=== PATIENT | female | born 1965 | race Caucasian/White ===

== ENCOUNTER 2018-02-06 16:28 | Emergency (ER) | payer OTHER ==
[2018-02-06 16:34] VITALS: RESP 18; BMI 25.6
--- NOTE | 2018-02-06 18:03 | RAD ---
Date of service: 02/06/2018 PROCEDURE: Left small finger radiographs. HISTORY: left 5th finger swelling, erythema COMPARISON: None available. TECHNIQUE: AP radiograph of the left hand, as well as spot oblique and lateral images of left small finger were obtained. FINDINGS: LEFT SMALL FINGER: Left 5th digit demonstrates small oblong hyperdensity along the medial proximal aspect of the 5th middle phalanx seen only on AP view of unclear significance. No acute displaced fracture identified. Remainder of the left hand (as seen on the AP view) is grossly unremarkable. JOINTS: No dislocation. SOFT TISSUES: Marked soft tissue swelling of the 5th digit. OTHER FINDINGS: None. IMPRESSION: Soft tissue swelling of the 5th digit. Left 5th digit demonstrates small oblong hyperdensity along the medial proximal aspect of the 5th middle phalanx seen only on AP view of unclear significance; recommend clinical correlation including physical exam. No acute displaced fracture identified.
--- NOTE | 2018-02-06 18:11 | ED PDOC ---
Arrival/HPI - General Chief Complaint: Finger,Hand,&Wrist Time Seen by Provider: 02/06/18 16:35 Historian: Patient - History of Present Illness Narrative History of Present Illness (Text): 02/06/18 18:14 52-year-old female presents today with left fifth finger pain redness and swelling that started this morning. Patient states she thought she may have slept on her finger wrong and woke up with pain redness and swelling to the PIP joint. Patient denies numbness weakness or tingling in the extremity but is complaining of some pain with range of motion of the finger. She denies any recent trauma or injury. Patient denies fevers or chills. No medications have been taken at home. Patient states throughout the day she's had increased swelling to the finger. No other complaints. Patient states the majority of pain is located over the PIP joint. Past Medical History - Provider Review Nursing Documentation Reviewed: Yes - Travel History Have you recently traveled outside [place] w/in the past 3 mons?: No - Infectious Disease Hx of Infectious Diseases: None - Tetanus Immunization Tetanus Immunization: Unknown - Past Medical History Past Medical History: No Previous - Cardiac Hx Cardiac Disorders: No - Pulmonary Hx Respiratory Disorders: No - Neurological Hx Neurological Disorder: No - HEENT Hx HEENT Disorder: No - Renal Hx Renal Disorder: No - Endocrine/Metabolic Hx Endocrine Disorders: No - Hematological/Oncological Hx Blood Disorders: No - Musculoskeletal/Rheumatological Hx Musculoskeletal Disorders: No - Gastrointestinal Hx Hemorrhoids: Yes - Genitourinary/Gynecological Hx Genitourinary Disorders: No - Psychiatric Hx Depression: No Hx Emotional Abuse: No Hx Physical Abuse: No Hx Substance Use: No - Surgical History Hx Section: Yes Hx Cholecystectomy: Yes Hx Hysterectomy: Yes - Anesthesia Hx Anesthesia: Yes Hx Anesthesia Reactions: No Hx Malignant Hyperthermia: No - Suicidal Assessment Feels Threatened In Home Enviroment: No Family/Social History - Physician Review Nursing Documentation Reviewed: Yes Family/Social History: Unknown Family HX Smoking Status: Never Smoked Hx Alcohol Use: No Hx Substance Use: No Hx Substance Use Treatment: No Allergies/Home Meds Allergies/Adverse Reactions: Allergies No Known Allergies Allergy (Verified 08/28/17 12:16) Home Medications: Home Meds Medication Instructions Recorded Confirmed Phenazopyridine/Urine Uti Strp 09/04/17 [Uristat Relief Segundo] Review of Systems - Review of Systems Constitutional: absent: Fatigue, Fevers Respiratory: absent: SOB, Cough Cardiovascular: absent: Chest Pain, Palpitations Gastrointestinal: absent: Abdominal Pain, Constipation, Diarrhea, Nausea, Vomiting Musculoskeletal: Arthralgias Skin: Cellulitis Neurological: absent: Headache, Dizziness Psychiatric: absent: Anxiety, Depression, Suicidal Ideation Physical Exam Vital Signs Reviewed: Yes Vital Signs Temp Pulse Resp BP Pulse Ox 02/06/18 18:04 78 18 138/74 99 02/06/18 16:34 98.4 F 80 18 140/80 99 Temperature: Afebrile Blood Pressure: Normal Pulse: Regular Respiratory Rate: Normal Appearance: Positive for: Well-Appearing, Non-Toxic, Comfortable Pain Distress: None Mental Status: Positive for: Alert and Oriented X 3 - Systems Exam Head: Present: Atraumatic Mouth: Present: Moist Mucous Membranes Respiratory/Chest: Present: Clear to Auscultation Cardiovascular: Present: Regular Rate and Rhythm Upper Extremity: Present: Normal ROM, NORMAL PULSES, Tenderness (left 5th finger; there is erythema noted over the PIP joint. there is minimal erythema noted to the MCP joint of the 5th finger. + minimal edema noted to the entire finger. full rom of finger. NO warmth. sensation and distal pulses intact. cap refill <2. ), Swelling, Erythema, Neurovascularly Intact, Capillary Refill < 2s Neurological: Present: GCS=15, Speech Normal Skin: Present: Warm, Dry, Normal Color. No: Rashes Psychiatric: Present: Alert, Oriented x 3 Medical Decision Making ED Course and Treatment: 02/06/18 18:08 pt is non toxic well appearing; no distress. stable vitals. c/o left 5th finger pain/redness/swelling since this morning. no trauma or injury. pt seen and evaluated by dr. cadet. xray left 5th finger FINDINGS: LEFT SMALL FINGER: Left 5th digit demonstrates small oblong hyperdensity along the medial proximal aspect of the 5th middle phalanx seen only on AP view of unclear significance. No acute displaced fracture identified. Remainder of the left hand (as seen on the AP view) is grossly unremarkable. JOINTS: No dislocation. SOFT TISSUES: Marked soft tissue swelling of the 5th digit. OTHER FINDINGS: None. IMPRESSION: Soft tissue swelling of the 5th digit. Left 5th digit demonstrates small oblong hyperdensity along the medial proximal aspect of the 5th middle phalanx seen only on AP view of unclear significance; recommend clinical correlation including physical exam. No acute displaced fracture identified. will give keflex po, motrin for pain. pt advised to return in 2 days for re- evaluation. advised immediate return tomorrow if symptoms worsen, increased swelling, increased redness, limited ROM of finger, high fevers or if any other concerning symptoms develop. impression; cellulitis, finger motrin every 6 hours as needed for pain kelfex; 1 capsule 4 times daily x 7 days. Follow up with the hand specialist within the next 2 days. Return in 2 days for re-evaluation return IMMEDIATELY if symptoms worsen persist or if new concerning symptoms develop: High fevers, increasing pain, increasing redness, increasing swelling, purulent discharge - RAD Interpretation Radiology Orders: 02/06/18 17:08 HAND LEFT 5TH DIGIT (FINGER) [RAD] Stat - Medication Orders Current Medication Orders: Discontinued Medications Ibuprofen (Motrin Tab) 600 mg PO STAT STA Stop: 02/06/18 17:09 Last Admin: 02/06/18 17:43 Dose: 600 mg MAR Pain/Vitals Document 02/06/18 17:43 GMD (Rec: 02/06/18 17:43 [id number] Pain Reassessment Is This A Pain ReAssessment? No Disposition/Present on Arrival - Present on Arrival Any Indicators Present on Arrival: No History of DVT/PE: No History of Uncontrolled Diabetes: No Urinary Catheter: No History of Decub. Ulcer: No History Surgical Site Infection Following: None - Disposition Have Diagnosis and Disposition been Completed?: Yes Diagnosis: Cellulitis, finger Disposition: HOME/ ROUTINE Disposition Time: 17:20 Patient Plan: Discharge Patient Problems: Current Active Problems Problem Status Onset Cellulitis, finger Acute Condition: GOOD Discharge Instructions (ExitCare): Cellulitis (ED) Additional Instructions: motrin every 6 hours as needed for pain kelfex; 1 capsule 4 times daily x 7 days. Follow up with the hand specialist within the next 2 days. Return in 2 days for re-evaluation return IMMEDIATELY if symptoms worsen persist or if new concerning symptoms develop: High fevers, increasing pain, increasing redness, increasing swelling, purulent discharge Prescriptions: Cephalexin [Keflex] 500 mg PO QID #28 capsule Ibuprofen [Motrin] 600 mg PO Q6H PRN #20 tab PRN Reason: pain/fever reduction Referrals: Samanta Frost MD [Staff Provider] - Follow up with primary Vera Mendez MD [Family Provider] - Follow up with primary [facility] [place] [Outside] - Follow up with primary [facility] [Outside] - Follow up with primary Pavel Reardon MD [Staff Provider] - Follow up with primary Forms: [employer] (Romanian), WORK NOTE
[2018-02-06 19:24] VITALS: BP 122/65; PULSE 62; TEMP 98; O2SAT 98
== END 2018-02-06 19:24 | disposition home or self-care (01) ==
LOC: ED 16:28
DX: L03.012 Cellulitis of left finger (principal)

== ENCOUNTER 2018-02-09 16:36 | Emergency (ER) | payer OTHER ==
[2018-02-09 16:36] VITALS: BMI 25.6
[2018-02-09 17:36] VITALS: BP 109/76; RESP 18; TEMP 98.4
--- NOTE | 2018-02-09 17:56 | ED PDOC ---
Arrival/HPI - General Chief Complaint: Finger,Hand,&Wrist Time Seen by Provider: 02/09/18 16:40 Historian: Patient - History of Present Illness Narrative History of Present Illness (Text): 02/09/18 18:42 52-year-old female presents today for reevaluation of the left fifth finger cellulitis. pt was seen in the ER 4 days ago with redness, swelling and pain to the left 5th finger. pt was discharge home on keflex for which the patient has been taking as prescribed. pt present today for re-evaluation and states she has no pain. pt states the redness has resolved but she still has some swelling to a portion of the finger. pt denies numbness, weakness, tingling in the extremity. pt denies fever/chills. denies limited rom of finger. no other complaints. Time/Duration: Other (4 days) Symptom Course: Improving Quality: Other (NO PAIN) Past Medical History - Provider Review Nursing Documentation Reviewed: Yes - Travel History Have you recently traveled outside [place] w/in the past 3 mons?: No - Infectious Disease Hx of Infectious Diseases: None - Tetanus Immunization Tetanus Immunization: Unknown - Past Medical History Past Medical History: No Previous - Cardiac Hx Cardiac Disorders: No - Pulmonary Hx Respiratory Disorders: No - Neurological Hx Neurological Disorder: No - HEENT Hx HEENT Disorder: No - Renal Hx Renal Disorder: No - Endocrine/Metabolic Hx Endocrine Disorders: No - Hematological/Oncological Hx Blood Disorders: No - Musculoskeletal/Rheumatological Hx Musculoskeletal Disorders: No - Gastrointestinal Hx Hemorrhoids: Yes - Genitourinary/Gynecological Hx Genitourinary Disorders: No - Psychiatric Hx Depression: No Hx Emotional Abuse: No Hx Physical Abuse: No Hx Substance Use: No - Surgical History Hx Section: Yes Hx Cholecystectomy: Yes Hx Hysterectomy: Yes - Anesthesia Hx Anesthesia: Yes Hx Anesthesia Reactions: No Hx Malignant Hyperthermia: No - Suicidal Assessment Feels Threatened In Home Enviroment: No Family/Social History - Physician Review Nursing Documentation Reviewed: Yes Family/Social History: Unknown Family HX Smoking Status: Never Smoked Hx Alcohol Use: No Hx Substance Use: No Hx Substance Use Treatment: No Allergies/Home Meds Allergies/Adverse Reactions: Allergies No Known Allergies Allergy (Verified 08/28/17 12:16) Home Medications: Home Meds Medication Instructions Recorded Confirmed Phenazopyridine/Urine Uti Strp 07/01/18 [Uristat Relief Segundo] Review of Systems - Review of Systems Constitutional: absent: Fatigue, Fevers Respiratory: absent: SOB, Cough Cardiovascular: absent: Chest Pain, Palpitations Gastrointestinal: absent: Abdominal Pain, Nausea, Vomiting Musculoskeletal: absent: Arthralgias, Back Pain, Neck Pain Neurological: absent: Headache, Dizziness Psychiatric: absent: Anxiety, Depression Physical Exam Vital Signs Reviewed: Yes Vital Signs Temp Pulse Resp BP Pulse Ox 02/09/18 17:35 98.4 F 78 18 109/76 97 Temperature: Afebrile Blood Pressure: Normal Pulse: Regular Respiratory Rate: Normal Appearance: Positive for: Well-Appearing, Non-Toxic, Comfortable Pain Distress: None Mental Status: Positive for: Alert and Oriented X 3 - Systems Exam Respiratory/Chest: Present: Clear to Auscultation Cardiovascular: Present: Regular Rate and Rhythm Upper Extremity: Present: Normal ROM, NORMAL PULSES, Swelling (left 5th finger; full ROM of finger, no erythema; no warmth. there is minimal swelling noted to the PIP joint. non tender. sensation and distal pulses intact. cap refill <2. ), Neurovascularly Intact, Capillary Refill < 2s. No: Tenderness, Erythema, Deformity Neurological: Present: GCS=15, Speech Normal Skin: Present: Warm, Dry Psychiatric: Present: Alert, Oriented x 3 Medical Decision Making ED Course and Treatment: 02/09/18 18:50 Patient is nontoxic well-appearing in no distress with stable vital signs presenting for reevaluation of the left fifth finger cellulitis diagnosed 4 days prior. The finger is without signs of infection is present time. There is a small amount of edema noted around the PIP joint without erythema or tenderness. There is full range of motion of the finger. Patient was advised to continue the antibiotics as prescribed and follow-up with the orthopedist/hand specialist within the next 2 days. She was advised immediate return if symptoms worsen persist or if new concerning symptoms develop Patient verbalizes understanding of discharge instructions and need for immediate followup. all aspects of this case were discussed the attending of record. Impression: finger swelling, re-evaluation continue antibiotics as prescribed. motrin every 6 hours if you develop pain Follow up with the orthopedist within the next 2 days. Apply ice, rest, elevation Return immediately if symptoms worsen,persist or if new symptoms develop. Disposition/Present on Arrival - Present on Arrival Any Indicators Present on Arrival: No History of DVT/PE: No History of Uncontrolled Diabetes: No Urinary Catheter: No History of Decub. Ulcer: No History Surgical Site Infection Following: None - Disposition Have Diagnosis and Disposition been Completed?: Yes Diagnosis: Finger swelling Disposition: HOME/ ROUTINE Disposition Time: 17:54 Patient Plan: Discharge Condition: GOOD Additional Instructions: continue antibiotics as prescribed. motrin every 6 hours if you develop pain Follow up with the orthopedist within the next 2 days. Apply ice, rest, elevation Return immediately if symptoms worsen,persist or if new symptoms develop. Referrals: Juan C Brambila [Primary Care Provider] - Follow up with primary Román Dan III, MD [Medical Doctor] - Follow up with primary Samanta Frost MD [Staff Provider] - Follow up with primary [facility] [place] [Outside] - Follow up with primary Chon Tate DO [Staff Provider] - Follow up with primary Forms: [employer] (Spanish)
[2018-02-09 18:09] VITALS: PULSE 79; O2SAT 99
== END 2018-02-09 18:09 | disposition home or self-care (01) ==
LOC: ED 16:36
DX: M79.89 Other specified soft tissue disorders (principal)

== ENCOUNTER 2018-05-29 17:34 | Emergency (ER) | payer OTHER ==
[2018-05-29 17:53] VITALS: BMI 25.7
[2018-05-29 17:58] VITALS: RESP 18; O2SAT 99
--- NOTE | 2018-05-29 18:26 | ED PDOC ---
Arrival/HPI - General Chief Complaint: ENT Problem Time Seen by Provider: 05/29/18 17:51 Historian: Patient - History of Present Illness Narrative History of Present Illness (Text): 52 y/o female with no significant PMH presents to the ED c/o sore throat and headache x 2 weeks. Also c/o bloody drainage from her right ear today and intermittent subjective fevers. Has not taken any medications for symptoms. Denies hearing loss, tinnitus, ear pain, vision changes, dizziness, nausea, vomiting, abdominal pain, back pain, neck pain/stiffness, cough, or any other associated symptoms. Past Medical History - Infectious Disease Hx of Infectious Diseases: None - Tetanus Immunization Tetanus Immunization: Unknown - Psychiatric Hx Substance Use: No - Surgical History Hx Cholecystectomy: Yes - Anesthesia Hx Anesthesia: Yes Hx Anesthesia Reactions: No Hx Malignant Hyperthermia: No Family/Social History Smoking Status: Never Smoked Hx Alcohol Use: No Hx Substance Use: No Allergies/Home Meds Allergies/Adverse Reactions: Allergies No Known Allergies Allergy (Unverified 05/29/18 17:52) Physical Exam Vital Signs Temp Pulse Resp BP Pulse Ox 05/29/18 17:57 98.4 F 98 H 18 136/83 99 Disposition/Present on Arrival - Present on Arrival History of DVT/PE: No History of Uncontrolled Diabetes: No Urinary Catheter: No History of Decub. Ulcer: No History Surgical Site Infection Following: None - Disposition Diagnosis: Upper respiratory infection, Headache Disposition: HOME/ ROUTINE Condition: STABLE Discharge Instructions (ExitCare): Bacterial Upper Respiratory Infection, Adult Additional Instructions: Aumentar cada 12 horas dominique 1 semana. No coloque nada en la oreja derecha. Aumentar los fluidos Seguimiento con ENT dentro de 2 mcallister. Seguimiento con mdico primario en 2 mcallister. Regrese a la nikunj de emergencias con cualquier sntoma nuevo o que empeore Prescriptions: Amoxicillin/Clavulanate [Augmentin 875 MG-125 MG] 1 tab PO Q12 #13 tab Referrals: Juan C Brambila [Primary Care Provider] - Follow up with primary Ramin Rodriguez DO [Staff Provider] - Follow up with primary Forms: [employer] (Israeli), WORK NOTE
[2018-05-29] MEDS ORDERED: Amoxicillin-Clav 875-125 mg Tab PO STA (19:28)
[2018-05-29 19:55] VITALS: BP 122/76; PULSE 88; TEMP 97.8
== END 2018-05-29 19:58 | disposition home or self-care (01) ==
LOC: ED 17:34
DX: J06.9 Acute upper respiratory infection, unspecified (principal); R51 Headache